=== PATIENT | female | born 1935 | race African-American/Black ===

== ENCOUNTER 2022-01-28 12:19 | Emergency (ER) | payer OTHER, MEDICAID ==
[~2022-01-28] VITALS: Ht 165.1 cm; Wt 73.0 kg
[2022-01-28 12:26] VITALS: BP 141/64
== END 2022-01-28 19:39 | disposition left against medical advice (07) ==
LOC: ER 12:19
DX: Z53.21 Procedure and treatment not carried out due to patient leaving prior to being seen by health care provider (principal)
CPT/HCPCS: 71045; 93005